=== PATIENT | male | born 1995 | race Caucasian/White ===

== ENCOUNTER 2022-01-20 15:13 | Emergency (ER) | payer OTHER, BC ==
[2022-01-20] MEDS ORDERED: Boostrix 0.5 ML (Tdap) VIAL ONE (15:58)
[2022-01-20] MEDS ORDERED: Rabies Vaccine Human 2.5 UNITS VIAL IM ONE (16:15)
== END 2022-01-20 17:14 | disposition home or self-care (01) ==
LOC: ERS 15:13
DX: S81.851A Open bite, right lower leg, initial encounter (principal); F17.210 Nicotine dependence, cigarettes, uncomplicated; Z23 Encounter for immunization; W54.0XXA Bitten by dog, initial encounter
CPT/HCPCS: 90375; 90471; 90472; 90675; 90715; 96372

== ENCOUNTER 2022-01-23 13:26 | Emergency (ER) | payer BC ==
[2022-01-23] MEDS ORDERED: Rabies Vaccine Human 2.5 UNITS VIAL ONE (15:18)
== END 2022-01-23 15:27 | disposition home or self-care (01) ==
LOC: ER/OP 13:26
DX: Z23 Encounter for immunization (principal)
CPT/HCPCS: 90471; 90675